=== PATIENT | female | born 1955 | race African-American/Black ===

== ENCOUNTER 2017-11-30 23:34 | Emergency (ER) | payer MEDICARE, MEDICAID ==
[~2017-11-30] VITALS: Ht 170.2 cm; Wt 138.0 kg
[~2017-11-30 23:34] MED LIST: CYCL5TAB10; LORA-250
[2017-12-01] MEDS ORDERED: DIPHENHYDRAMINE 50MG CAPSULE PO ONE (04:30)
[2017-12-01 04:40] VITALS: BP 147/82
== END 2017-12-01 05:44 | disposition home or self-care (01) ==
LOC: ER 23:34
DX: S80.862A Insect bite (nonvenomous), left lower leg, initial encounter (principal); S80.861A Insect bite (nonvenomous), right lower leg, initial encounter; L29.8 Other pruritus; I10 Essential (primary) hypertension; E07.9 Disorder of thyroid, unspecified; W57.XXXA Bitten or stung by nonvenomous insect and other nonvenomous arthropods, initial encounter; Y93.9 Activity, unspecified; Y92.9 Unspecified place or not applicable
CPT/HCPCS: 99283; Q0163